=== PATIENT | male | born 1980 | race Two or more races ===

== ENCOUNTER → 2022-11-17 23:57 | Outpatient (CLI) | payer MEDICAID, SELFPAY ==
[2022-11-17 18:58] LABS: Basophils % 0.4 % (0.1-2.0); Eosinophils # 0.3 K/mm3 (0.0-0.4); Eosinophils % 2.7 % (0.1-12.0); Hematocrit 45.9 % (42.0-52.0); Hemoglobin 14.4 g/dL (14.1-18.0); Lymphocytes # 2.1 K/mm3 (0.7-4.5); Lymphocytes % 21.9 % (10-50); Mean Corpuscular HGB Conc 31.3 g/dL (31.8-35.4); Mean Corpuscular Hemoglobin 29.4 pg (27.0-31.2); Mean Corpuscular Volume 93.9 fl (80-94); Mean Platelet Volume 9.8 fl (7.4-10.4); Monocytes # 0.7 K/mm3 (0.1-1.0); Monocytes % 7.2 % (1.7-9.3); Neutrophils # 6.4 K/mm3 (1.8-7.8); Neutrophils % 67.9 % (37.0-80.0); Platelet Count 330 K/mm3 (142-424); Red Blood Count 4.89 M/mm3 (4.60-6.20); Red Cell Distribution Width 13.5 % (11.5-17.5); White Blood Count 9.5 K/mm3 (4.8-10.8)
[2022-11-17 19:18] LABS: Alanine Aminotransferase 22 U/L (12-78); Albumin Level 3.8 g/dl (3.5-5.0); Albumin/Globulin Ratio 1.2 (1.1-1.8); Alkaline Phosphatase 93 U/L (38-126); Anion Gap 12.1 mEq/L (5-15); Aspartate Amino Transferase 29 U/L (17-59); Bilirubin,Total 0.2 mg/dl (0.2-1.3); Blood Urea Nitrogen 17 mg/dl (9-20); Calcium 8.9 mg/dl (8.4-10.2); Carbon Dioxide 30 mmol/L (22.0-30.0); Chloride 102 mmol/L (98-107); Chol/HDL Ratio 4.7 (1-3.5); Cholesterol 192 mg/dl (140-200); Estimated Glomerular Filt Rate 93 ml/min (>60); GFR (African American) 113 ML/MIN (>60); Globulin 3.3 g/dL (1.3-3.2); Glucose 108 mg/dl (74-100); HDL Cholesterol 41 mg/dl (40-60); Potassium 5.1 mmoL/L (3.5-5.1); Sodium 139 mmol/L (136-145); Total Protein,Serum 7.1 g/dl (6.3-8.2); Triglycerides 105 mg/dl (30-150); VLDL Cholesterol 21 mg/dL (0-40)
[2022-11-17 19:30] LABS: Direct LDL Cholesterol 111.27 mg/dL (100-129)
[2022-11-17 19:35] LABS: T4 (Thyroxine) 7.8 ug/dl (5.53-11.0)
[2022-11-17 19:36] LABS: 25-OH Vitamin D, Total 33.1 ng/mL (30-100)
[2022-11-17 19:49] LABS: Prostate Specific Ag Screen 1.1 ng/ml (0.0-4.0)
[2022-11-24 13:02] LABS: Lyme B. burgdorferi PCR Blood Negative (Negative)
== END ==
LOC: LAB.DROPOF 23:57
PROVIDERS: PCP Emergency Medicine; Visit Provider Emergency Medicine
DX: R53.83 Other fatigue (principal); Z68.25 Body mass index [BMI] 25.0-25.9, adult
CPT/HCPCS: 80050; 80053; 80061; 82306; 84436; 84443; 85025; 87476; G0103

== ENCOUNTER → 2023-01-13 23:31 | Outpatient (CLI) | payer MEDICAID, SELFPAY ==
[2023-01-13 21:16] LABS: Barbiturates Screen,Urine Negative ng/ml (<200)
[2023-01-13 21:17] LABS: Amphetamine/Metha Screen,Urine Negative ng/ml (<1000); Benzodiazepines Screen,Urine Positive ng/ml (<200)
[2023-01-13 21:18] LABS: Cannabinoid Screen,Urine Positive ng/ml (<50); Cocaine Screen,Urine Negative ng/ml (<300)
[2023-01-13 21:19] LABS: Methadone Screen,Urine Negative ng/ml (<300)
[2023-01-13 21:20] LABS: Opiate Screen,Urine Negative ng/ml (<300); Phencyclidine Screen,Urine Negative ng/ml (<25)
== END ==
PROVIDERS: PCP Emergency Medicine; Visit Provider Emergency Medicine
DX: Z79.899 Other long term (current) drug therapy (principal)
CPT/HCPCS: 80305

== ENCOUNTER 2023-04-30 14:54 | Outpatient (CLI) | payer MEDICAID, SELFPAY ==
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
== END 2023-04-30 23:59 ==
LOC: RAD 14:59
PROVIDERS: PCP Family Medicine; Visit Provider Family Medicine
DX: M54.2 Cervicalgia (principal); M54.6 Pain in thoracic spine; M25.511 Pain in right shoulder; M54.50 Low back pain, unspecified; V89.2XXA Person injured in unspecified motor-vehicle accident, traffic, initial encounter
CPT/HCPCS: 72084; 73030